=== PATIENT | female | born 1930 | race Caucasian/White ===

== ENCOUNTER 2017-02-18 15:52 | Emergency (ER) | payer MEDICARE, OTHER ==
[~2017-02-18] VITALS: Ht 175.3 cm; Wt 64.5 kg
[~2017-02-18 15:52] MED LIST: ASPI81TA82 PO; AZIL1TAB2 PO; BENI5TAB4 PO; COUM2TAB PO; DILT90 PO; DOXY100T PO; HYDR12.57 PO; MUCI600T PO; SYNT112T PO
[2017-02-18 15:54] VITALS: BP 126/80; PULSE 89; RESP 16; TEMP 98.4; O2SAT 98
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
[2017-02-18] MEDS ORDERED: TETANUS/DIPHTHERIA TOXOID ADULT 0.5 ML VIAL IM ONE (18:00)
== END 2017-02-18 18:41 | disposition home or self-care (01) ==
LOC: PHED 15:52
DX: S51.812A Laceration without foreign body of left forearm, initial encounter (principal); S51.811A Laceration without foreign body of right forearm, initial encounter; S81.012A Laceration without foreign body, left knee, initial encounter; I10 Essential (primary) hypertension; E07.9 Disorder of thyroid, unspecified; G20 Parkinson's disease; X58.XXXA Exposure to other specified factors, initial encounter; Y92.832 Beach as the place of occurrence of the external cause; Z79.01 Long term (current) use of anticoagulants; Z86.79 Personal history of other diseases of the circulatory system; Z87.448 Personal history of other diseases of urinary system
CPT/HCPCS: 99282